=== PATIENT | female | born 1990 | race Caucasian/White ===

== ENCOUNTER 2017-02-13 22:26 | Emergency (ER) | payer SELFPAY ==
[~2017-02-13] VITALS: Ht 160 cm; Wt 60.0 kg
[2017-02-13 22:41] VITALS: Ht 160 cm; Wt 60.0 kg
== END 2017-02-13 23:01 | disposition left against medical advice (07) ==
LOC: FTE 22:26
DX: Z53.21 Procedure and treatment not carried out due to patient leaving prior to being seen by health care provider (principal)